=== PATIENT | female | born 1985 | race Caucasian/White ===

== ENCOUNTER 2017-03-07 14:24 | Emergency (ER) | payer OTHER ==
[~2017-03-07] VITALS: Ht 160 cm; Wt 136.0 kg
[~2017-03-07 14:24] MED LIST: ARIP2TAB8 PO; CLIN-73 PO; NITR-58 PO
[2017-03-07 15:03] VITALS: Ht 160 cm; Wt 136.0 kg
[2017-03-07 15:27] LABS: ADD SCAN DIFF NO
[2017-03-07 15:32] LABS: BASOPHILS % 0.1 % (0.0-2.0); EOSINOPHILS # 0.1 10^3/ul (0.0-0.5); EOSINOPHILS % 0.8 % (0.0-7.0); HEMATOCRIT 36.1 % (37.0-47.0); HEMOGLOBIN 10.7 g/dl (12.0-16.0); LYMPHOCYTES # 1.6 10^3/ul (0.8-2.9); LYMPHOCYTES % 17.5 % (15.0-51.0); MEAN CORPUSCULAR HEMOGLOBIN 25.5 pg (29.0-33.0); MEAN CORPUSCULAR HGB CONC 29.6 g/dl (32.0-37.0); MEAN PLATELET VOLUME 11.4 fl (7.4-10.4); MONOCYTE # 0.6 10^3/ul (0.3-0.9); MONOCYTES % 6.1 % (0.0-11.0); NEUTROPHIL # 6.8 10^3/ul (1.6-7.5); NEUTROPHILS % 75.3 % (39.0-77.0); PLATELET COUNT 333 10^3/UL (140-415); RED CELL DISTRIBUTION WIDTH 17.3 % (11.5-14.5); WHITE BLOOD COUNT 9.1 10^3/ul (4.8-10.8)
[2017-03-07 15:43] LABS: ALBUMIN 4.3 g/dl (3.3-4.9); CHLORIDE 103 mmol/L (97-110)
[2017-03-07 15:44] LABS: SODIUM 142 mmol/L (135-144)
[2017-03-07 15:46] LABS: ALANINE AMINOTRANSFERASE 30 IU/L (13-69); ALBUMIN/GLOBULIN RATIO 0.97; ALKALINE PHOSPHATASE 137 IU/L (42-121); ANION GAP 15 (8-16); ASPARTATE AMINO TRANSFERASE 29 IU/L (15-46); BILIRUBIN,INDIRECT 0.3 mg/dl (0-1.1); BILIRUBIN,TOTAL 0.3 mg/dl (0.2-1.3); BLOOD UREA NITROGEN 16 mg/dl (7-20); CARBON DIOXIDE 27 mmol/L (21-31); CREATININE 0.56 mg/dl (0.44-1.00); GLUCOSE 105 mg/dl (70-220); TOTAL PROTEIN 8.7 g/dl (6.1-8.1)
[2017-03-07 15:47] LABS: CALCIUM 9.1 mg/dl (8.4-10.2)
[2017-03-07 15:48] LABS: INR 1.17; PT RATIO 1.2
[2017-03-07 15:49] LABS: PARTIAL THROMBOPLASTIN TIME 30.5 Sec (25.0-35.0)
[2017-03-07 15:54] LABS: ACETAMINOPHEN < 10.0 ug/ml (10.0-30.0); SALICYLATE < 1.0 mg/dl (5.0-30.0)
--- NOTE | 2017-03-07 15:59 | ERA ---
ER Documentation Chief Complaint Date/Time DATE: 03/07/17 TIME: 15:54 Chief Complaint ANXIETY ATTACK SINCE YESTERDAY HPI This is a 31-year-old female with a known history of depression and anxiety. The patient directly phoned the [facility] ER stating that she was in her car in the parking lot of the hospital, with a puppy , and stated she wanted to jump off a building and kill herself due to a significant amount of stress that she has been undergoing. The patient states she has had previous suicidal thoughts. She has had no fevers or shaking or chills. She denies any illicit drug use or alcohol use. She denies a headache. She has no shortness of breath at rest or exertion. ROS All systems reviewed and are negative except as per history of present illness. Medications Home Meds Reported Medications Clonazepam* (Clonazepam*) 0.5 Mg Tablet, 0.5 MG PO BID Y for ANXIETY, TAB 03/07/17 Sertraline Hcl* (Sertraline Hcl*) 50 Mg Tablet, 150 MG PO QAM, #30 TAB 03/07/17 Risperidone* (Risperidone*) 2 Mg Tablet, 2 MG PO BID, TAB 03/07/17 Discontinued Scripts Clindamycin Hcl* (Clindamycin Hcl*) 300 Mg Capsule, 300 MG PO Q6 for 10 Days, CAP Prov:GEOFF RENDON 11/08/16 Aripiprazole* (Abilify*) 2 Mg Tablet, 2 MG PO DAILY, #14 TAB Prov:JEN DIXON MD 06/28/16 Nitrofurantoin Monohyd Macrocr* (Macrobid*) 100 Mg Capsr, 100 MG PO BID for 7 Days, CAP Prov:JEN DIXON MD 06/28/16 Allergies Allergies: Coded Allergies: No Known Allergy (Unverified , 03/07/17) PMhx/Soc History of Surgery: Yes (2 c sections, gallbladder) Anesthesia Reaction: No Hx Neurological Disorder: No Hx Respiratory Disorders: No Hx Cardiac Disorders: No Hx Alcohol Use: No Hx Substance Use: No Hx Tobacco Use: No Physical Exam Vitals Vital Signs Date Time Temp Pulse Resp B/P Pulse Ox O2 Delivery O2 Flow Rate FiO2 03/07/17 15:03 98.2 76 18 114/64 99 Physical Exam Constitutional:Well-developed. Well-nourished. HEENT:Normocephalic. Atraumatic.Pupils were equal round reactive to light. Moist mucous membranes.No tonsillar exudates. Neck: No nuchal rigidity. No lymphadenopathy. No posterior cervical spine tenderness or step-offs. Respiratory: Not using accessory muscles of respiration.Lungs were clear to auscultation bilaterally. No rhonchi. No rales. No wheezing. Cardiovascular: Regular rate regular rhythm.No murmurs. No rubs were appreciated.S1, S2 normal. Distal pulses are palpable 2+ bilaterally. GI: Abdomen was soft. Nontender. Non Distended. No pulsatile abdominal masses or bruits. No rebound. No guarding. Bowel sounds were present and normal. Muscle skeletal: Full range of motion of both the upper and lower extremities bilaterally.Normal muscle tone.No assymetrical calf tenderness or swelling. Skin: No petechia, no purpura. No lesions on the palms or the soles of the feet. No maculopapular rash. NEURO: Patient was alert, awake, orientated x3.No facial droop. Gait observed and normal with no ataxia.Speech had regular rate and rhythm. No focal neurological deficits. The patient does state she is experiencing suicidal thoughts and feels anxious but denies any tactile auditory or visual hallucinations Result Diagram: 03/07/17 1515 03/07/17 1515 Results 24 hrs Laboratory Tests Test 03/07/17 15:15 03/07/17 16:05 White Blood Count 9.110^3/ul Red Blood Count 4.2010^6/ul Hemoglobin 10.7g/dl Hematocrit 36.1% Mean Corpuscular Volume 86.0fl Mean Corpuscular Hemoglobin 25.5pg Mean Corpuscular Hemoglobin Concent 29.6g/dl Red Cell Distribution Width 17.3% Platelet Count 61874^3/UL Mean Platelet Volume 11.4fl Neutrophils % 75.3% Lymphocytes % 17.5% Monocytes % 6.1% Eosinophils % 0.8% Basophils % 0.1% Nucleated Red Blood Cells % 0.0/100WBC Neutrophils # 6.810^3/ul Lymphocytes # 1.610^3/ul Monocytes # 0.610^3/ul Eosinophils # 0.110^3/ul Basophils # 0.010^3/ul Nucleated Red Blood Cells # 0.010^3/ul Prothrombin Time 15.0Sec Prothrombin Time Ratio 1.2 INR International Normalized Ratio 1.17 Activated Partial Thromboplast Time 30.5Sec Sodium Level 142mmol/L Potassium Level 3.0mmol/L Chloride Level 103mmol/L Carbon Dioxide Level 27mmol/L Anion Gap 15 Blood Urea Nitrogen 16mg/dl Creatinine 0.56mg/dl Glucose Level 105mg/dl Calcium Level 9.1mg/dl Total Bilirubin 0.3mg/dl Direct Bilirubin 0.00mg/dl Indirect Bilirubin 0.3mg/dl Aspartate Amino Transf (AST/SGOT) 29IU/L Alanine Aminotransferase (ALT/SGPT) 30IU/L Alkaline Phosphatase 137IU/L Total Protein 8.7g/dl Albumin 4.3g/dl Globulin 4.40g/dl Albumin/Globulin Ratio 0.97 Digoxin Level < 0.4ng/ml Salicylates Level < 1.0mg/dl Acetaminophen Level < 10.0ug/ml Ethyl Alcohol Level < 10.0mg/dl Urine Color YELLOW Urine Clarity CLEAR Urine pH 6.0 Urine Specific [place] >=1.030 Urine Ketones NEGATIVE Urine Nitrite POSITIVE Urine Bilirubin NEGATIVE Urine Urobilinogen 0.2 E.U./dL Urine Leukocyte Esterase NEGATIVE Urine Microscopic RBC 0-2/HPF Urine Microscopic WBC 2-5/HPF Urine Squamous Epithelial Cells MANY Urine Bacteria MANY Urine Hemoglobin 2+ Urine Glucose NEGATIVE% Urine Total Protein TRACE Urine Opiates Screen NEGATIVE Urine Barbiturates NEGATIVE Urine Amphetamines Screen POSITIVE Urine Benzodiazepines Screen NEGATIVE Urine Cocaine Screen NEGATIVE Urine Cannabinoids POSITIVE Procedures/MDM The patient presented to the emergency department with an active suicidal ideation. My differential diagnosis included but was not limited to major depressive disorder, normal despondency, bipolar disorder, schizophrenia, anxiety disorder, borderline personality disorder, antisocial personality disorder, organic mental disorder, bereavement or alcohol or drug abuse. Ancillary lab work was obtained including blood alcohol level, drug screen and serum toxicology panel. The patient was provided a safe environment while in the emergency department with appropriate supervision. The patient will be seen and evaluated by the tele-psychiatrist she did state she was experiencing suicidal thoughts. The patient was seen by the psychiatrist Dr. Benitez and it was recommended that the patient be placed on a 5150. Departure Diagnosis: Primary Impression: Anxiety attack Additional Impression: Suicidal ideation Condition: Serious EDIE SIERRA Mar 07, 2017 15:59
[2017-03-07 16:12] LABS: ETHANOL < 10.0 mg/dl
[2017-03-07] MEDS ORDERED: RISP2TAB3 PO (16:16)
[2017-03-07] MEDS ORDERED: SERT50TA6 PO (16:17)
[2017-03-07] MEDS ORDERED: CLON0.5T4 PO (16:20)
[2017-03-07 16:36] LABS: ADD UMIC YES; URINE BILIRUBIN (Dip) NEGATIVE (NEGATIVE); URINE BLOOD (Dip) 2+ (NEGATIVE); URINE COLOR YELLOW (YELLOW); URINE GLUCOSE (Dip) NEGATIVE (NEGATIVE); URINE KETONES (Dip) NEGATIVE (NEGATIVE); URINE LEUKOCYTE ESTERASE (Dip) NEGATIVE (NEGATIVE); URINE NITRITE (Dip) POSITIVE (NEGATIVE); URINE TOTAL PROTEIN (Dip) TRACE (NEGATIVE); URINE UROBILINOGEN (Dip) 0.2 E.U./dL (0.1-1.0)
[2017-03-07 16:58] LABS: BACTERIA,URINE MANY; SQUAMOUS EPITHELIAL CELL,UR MANY; URINE RBCS 0-2 /HPF (0)
[2017-03-07 17:14] LABS: BARBITURATES NEGATIVE (NEGATIVE); BENZODIAZEPINES NEGATIVE (NEGATIVE); CANNABINOIDS POSITIVE (NEGATIVE); COCAINE NEGATIVE (NEGATIVE); OPIATES NEGATIVE (NEGATIVE)
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
[2017-03-08] MEDS ORDERED: ACETAMINOPHEN 500 MG TAB PO STA (12:05)
[2017-03-08 12:18] VITALS: TEMP 98.8
[2017-03-08 13:01] VITALS: BP 123/68; PULSE 78; RESP 18
== END 2017-03-08 12:47 ==
LOC: E/R 14:24
DX: F41.0 Panic disorder [episodic paroxysmal anxiety] (principal); R45.851 Suicidal ideations; E66.9 Obesity, unspecified; Z68.43 Body mass index [BMI] 50.0-59.9, adult
CPT/HCPCS: 80053; 80162; 80306; 80307; 81001; 85025; 85610; 85730; Z7502; 81003; 99285

== ENCOUNTER 2017-03-30 06:25 | Emergency (ER) | payer OTHER ==
[~2017-03-30] VITALS: Ht 152.4 cm; Wt 152.0 kg
[~2017-03-30 06:25] MED LIST changes: -ARIP2TAB8 PO; -CLIN-73 PO; +CLON0.5T4 PO; -NITR-58 PO; +RISP2TAB3 PO; +SERT50TA6 PO
[2017-03-30 06:45] VITALS: Ht 152.4 cm; Wt 152.0 kg
[2017-03-30] MEDS ORDERED: ALBU8.5H3 INH (07:48)
[2017-03-30] MEDS ORDERED: IBUP-1542 PO (07:48)
[2017-03-30] MEDS ORDERED: LORA10TA3 PO (07:48)
[2017-03-30] MEDS ORDERED: IBUPROFEN 600 MG TAB PO ONE (08:00)
[2017-03-30 08:11] VITALS: BP 125/68; PULSE 71; RESP 18
--- NOTE | 2017-03-30 09:56 | ERD ---
ER Documentation Chief Complaint Date/Time DATE: 03/30/17 TIME: 09:55 Chief Complaint cough x 2 days, homeless (psych) HPI 31-year-old woman with a history of psychiatric illness presents with nasal congestion, cough 2 days. Patient denies suicidal homicidal ideation, no fevers or chills, no weight loss, no vomiting or diarrhea. Patient denies domestic violence. ROS All systems reviewed and are negative except as per history of present illness. Medications Home Meds Active Scripts Ibuprofen* (Ibuprofen*) 600 Mg Tablet, 600 MG PO Q8 for PAIN, #30 TAB Prov:AKHIL HASSAN MD 03/30/17 Loratadine* (Loratadine*) 10 Mg Tablet, 10 MG PO DAILY Y for NASAL CONGESTION, # 15 TAB Prov:AKHIL HASSAN MD 03/30/17 Albuterol Sulfate* (Proair HFA*) 8.5 Gm Hfa.aer.ad, 2 PUFF INH Q6H Y for COUGH, #1 INHALER Prov:AKHIL HASSAN MD 03/30/17 Reported Medications Clonazepam* (Clonazepam*) 0.5 Mg Tablet, 0.5 MG PO BID Y for ANXIETY, TAB 03/07/17 Sertraline Hcl* (Sertraline Hcl*) 50 Mg Tablet, 150 MG PO QAM, #30 TAB 03/07/17 Risperidone* (Risperidone*) 2 Mg Tablet, 2 MG PO BID, TAB 03/07/17 Allergies Allergies: Coded Allergies: No Known Allergy (Unverified , 03/30/17) PMhx/Soc Psychiatric illness History of Surgery: Yes (2 c sections, gallbladder) Anesthesia Reaction: No Hx Neurological Disorder: No Hx Respiratory Disorders: No Hx Cardiac Disorders: No Hx Alcohol Use: No Hx Substance Use: No Hx Tobacco Use: No Smoking Status: Former smoker FmHx Family History: No diabetes Physical Exam Vitals Vital Signs Date Time Temp Pulse Resp B/P Pulse Ox O2 Delivery O2 Flow Rate FiO2 03/30/17 08:11 71 18 125/68 99 Room Air 03/30/17 06:45 97.8 76 18 124/61 95 Physical Exam GENERAL: Well-developed, well-nourished, well-hydrated, in no apparent distress , looks nontoxic in appearance HEENT: Moist mucous membranes, pink conjunctiva, no cervical spine tenderness or step-off deformities, no goiter, no jaundice or icterus, extraocular movements intact without pain. No submandibular induration, and no pharyngeal erythema NEURO: Alert and oriented 3, cranial nerves II through XII intact bilaterally, pupils equal round reactive to light, no focal deficits or facial asymmetry, sensation intact distally Strength 5/5 in upper and lower extremities bilaterally CARDIAC: Regular rate and rhythm, no murmurs rubs or gallops LUNGS: Clear bilaterally no wheezing crackles or stridor ABDOMEN: Soft nontender, no guarding, no rigidity, no rebound, no psoas sign no obturator sign. Normoactive bowel sounds SKIN: Warm and dry to touch, no abrasions, contusions, or hematomas, no lacerations, no ecchymosis, no target lesions, and without ulcers EXTREMITIES: No clubbing cyanosis or edema, calves are bilaterally symmetrical, no Homans sign, no popliteal cord sign. Distal pulses equal and bilateral PSYCH: Normal affect without agitation or irritability Results 24 hrs Current Medications Medications (Trade) Dose Ordered Sig/Symone Route PRN Reason Start Time Stop Time Status Last Admin Dose Admin Ibuprofen (Motrin) 600 mg ONCE ONCE PO 03/30/17 08:00 03/30/17 08:01 DC Procedures/MDM I administered ibuprofen p.o. for her symptoms. Differential diagnoses considered, included but not limited to acute coronary syndrome, pulmonary embolism, aortic dissection, abdominal aortic aneurysm, sepsis, stroke, meningitis, encephalitis, pneumonia, appendicitis, cholecystitis , bowel obstruction, pyelonephritis, nephrolithiasis, cystitis, as well as metabolic, hematologic, and electrolyte abnormalities. As well as abscess, cellulitis, fractures, and dislocations. Patient feels much better at this time, and vital signs are normal, symptoms have improved. I did give strict instructions to return to the ED if symptoms continue or worsen, patient will otherwise follow-up with primary care physician. Patient understood instructions and agreed to plan. Departure Diagnosis: Primary Impression: URI (upper respiratory infection) URI type: acute nasopharyngitis (common cold) Qualified Code: J00 - Acute nasopharyngitis Condition: Good Patient Instructions: Uri, Viral, No Abx (Adult) AKHIL HASSAN MD March 30, 2017 09:56
== END 2017-03-30 08:13 | disposition home or self-care (01) ==
LOC: E/R 06:25
DX: J00 Acute nasopharyngitis [common cold] (principal); Z87.891 Personal history of nicotine dependence
CPT/HCPCS: Z7502; Z7610; 99283

== ENCOUNTER 2018-07-27 05:26 | Emergency (ER) | END 2018-07-27 09:29 | disposition home or self-care (01) ==